=== PATIENT | male | born 1980 | race Caucasian/White ===

== ENCOUNTER 2024-10-03 11:42 | Day surgery (SDC) | payer OTHER ==
[2024-09-29 15:32] VITALS: BMI 26.9
[2024-10-03] MEDS ORDERED: LIDOCAINE HCL 1%, 10 MG/ML (20ML VIAL) ONE (12:36)
[2024-10-03] MEDS ORDERED: MIDAZOLAM HCL 2 MG/2 ML SINGLE DOSE VIAL ONE ×2 (12:41→12:55)
[2024-10-03] MEDS ORDERED: BUPIVACAINE HCL/PF 0.25% (2.5MG/ML) 10 ML VIAL ONE (13:22)
[2024-10-03] MEDS ORDERED: DEXAMETHASONE SOD PHOSPHATE 4 MG/1 ML VIAL ONE (13:22)
[2024-10-03 15:14] VITALS: PULSE 67; RESP 16; TEMP 97.3
[2024-10-03 17:30] VITALS: BP 114/72
== END 2024-10-03 14:40 | disposition home or self-care (01) ==
LOC: FASU 11:42
PROVIDERS: ATTEND Podiatrist
PROC: 01BG0ZZ Excision of Tibial Nerve, Open Approach (ICD-10-PCS; principal; 2024-10-03 13:13)
DX: G57.62 Lesion of plantar nerve, left lower limb (principal); I10 Essential (primary) hypertension; E78.5 Hyperlipidemia, unspecified
CPT/HCPCS: 88304-TC